=== PATIENT | female | born 1995 | race Two or more races ===

== ENCOUNTER 2019-04-27 23:35 | Inpatient (IN) | payer OTHER, SELFPAY ==
[~2019-04-27] VITALS: Ht 162.6 cm; Wt 80.0 kg
[2019-04-28] VITALS (7 sets, daily range): BP systolic 100–129; BP diastolic 57–71
[2019-04-28] MEDS ORDERED: PRENTAB9 PO (01:04)
[2019-04-28] MEDS ORDERED: LACTATED RINGER'S 1000 ML IV STA (04:02)
[2019-04-28] MEDS ORDERED: LR 1,000 ML IV SCH (04:02)
--- NOTE | 2019-04-28 04:14 | HPEPDOC ---
Obstetrical History & Physical General Date of Admission Apr 28, 2019 at 03:38 History of Present Illness Patient is a 23-year-old G3, P2 at 38.2 weeks by LMP consistent with 9 week ultr asound. Patient presents with contractions every 10 minutes or so since last night. No loss of fluid. No bleeding. Good movement. 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 Past Medical History Medical History Depression with SA Surgical History: Tooth extraction Family History Significant Family History: No pertinent family hx Social History Marital Status: Family situation: Spouse/partner home Psychosocial History: Depression, Prior suicide attempt * Smoker: non-smoker Alcohol: Denies Abuse Violence Screening Have you been hit/kicked/slapp: No Have you been sexually assault: No Imunizations Tdap status: current Influenza Status: current Medications Scheduled No.137/Iron/Folic Acd ( Vitamin Tablet) 1 Each Tablet, 1 TAB PO DAILY Physical Examination Physical Examination GENERAL: Alert and oriented times three. BREAST: . ABDOMEN: Gravid and non-tender to touch. FETUS: Is vertex (VTX) by sterile vaginal examination (SVE), EFW 3200gm by Lc. HEART RATE: Regular rate and rhythm. LUNGS: Clear to auscultation (CTA). EXTREMITIES: No edema. Pertinent Laboratoy Data Blood Type: AB+ RBC Antibody Screen: Negative HIV: Negative Hepatitis B: Negative Rapid Plasma Reagin: Nonreactive Rubella: Immune Varicella: Immune Chlamydia/Gonorrhea: Negative Group B Streptococcus: Negative Glucose Tolerance Test: 94 Anatomy Ultrasound Ultrasound Date: Jan 15, 2019 Placenta Location: Anterior Normal Anatomy: Yes Placenta Previa: No Estimated Weight (grams): 557 Steroid Therapy Steroid Therapy: No Vaginal Examination Dilation: 6 cm Effacement: 100% Station: 0 Cervical Consistency: Soft Cervical Position: Middle Presentation: Cephalic presentation Assessment Heart Rate (FHR): 130 Variability: Moderate Accelerations: Positive Decelerations: None Tocometer Contractions: Yes Frequency: regular, greater than 9 min/apart Strength: palpated as moderate Multi-drug resistant Organism: No history of MDRO Assessment/Plan Assessment Patient is a 23-year-old G3, P2 at 38.2 weeks by LMP consistent with 9 week ultrasound. Admit for labor and expect delivery by . Pain management per patient preference, which was discussed with her. I discussed risks of with patient of failure with section, distress, bleeding, infection, , vaginal or perineal or neighboring organ tear. Currently, fetus is reassuring. GBS is negative, no need for antibiotics. Plan Admit and orient. Inspector And Clerk and consent. Diet: Clear. Group B Streptococcus (GBS) negative. Labs and intravenous (IV) per unit protocol. Counseled on Pitocin and induction of labor (IOL). Lactated Ringers (LR): Bolus 500 mL, then at 125 mL/hr. Anticipate normal spontaneous delivery (). Pain management per patient desire. Flor Holguin MD Apr 28, 2019 04:14
[2019-04-28] MEDS ORDERED: CALCIUM CARBONATE 500 MG CHEW U/D PO PRN (04:15)
[2019-04-28] MEDS ORDERED: ACETAMINOPHEN 500 MG TAB PO PRN (04:15)
[2019-04-28] MEDS ORDERED: SIMETHICONE 80 MG CHEW TAB PO PRN (04:15)
[2019-04-28] MEDS ORDERED: PROMETHAZINE INJ 25 MG/ML VIAL (J2550) IV PRN (04:15)
[2019-04-28] MEDS ORDERED: MOM 30ML SUSPENSION UDC PO PRN ×2 (04:15→09:45)
[2019-04-28] MEDS ORDERED: BUTORPHANOL 2 MG/ML INJ (J0595) IV PRN (04:15)
[2019-04-28 04:16] LABS: BASO % 0.3 % (0.0-1.0); EOS % 0.5 % (0.0-3.0); HEMATOCRIT 36.1 % (36.0-47.0); LYMPH # 2.8 10^3/uL (1.5-5.0); LYMPH % 33.1 % (24.0-44.0); MEAN CORPUSCULAR HEMOGLOBIN 27.3 pg (27.0-33.0); MEAN CORPUSCULAR HGB CONC 33.2 g/dl (32.0-36.5); MEAN CORPUSCULAR VOLUME 82.2 fl (80.0-96.0); MONO # 0.4 10^3/uL (0.0-0.8); MONO % 4.7 % (0.0-5.0); NEUTROPHILS # 5.3 10^3/uL (1.5-8.5); NEUTROPHILS % 61.1 % (36.0-66.0); PLATELET COUNT, AUTOMATED 266 10^3/uL (150-450); RED BLOOD COUNT 4.39 10^6/uL (4.00-5.40); WHITE BLOOD COUNT 8.6 10^3/uL (4.0-10.0)
[2019-04-28] MEDS ORDERED: OXYTOCIN 30 UNITS IN 0.9% NaCl 500ML IV BAG (J2590) As Ordered ONE (05:03)
[2019-04-28] MEDS ORDERED: OXYTOCIN DRIP 30 UNITS in IV 1 EA IV SCH (09:44)
[2019-04-28] MEDS ORDERED: MEASLES,MUMPS,RUBELLA VACCINE INJ (MMR-II) (90707) SC SCH (09:45)
[2019-04-28] MEDS ORDERED: RHOGAM 300 MCG (1500 IU) INJ (J2790) IM SCH (09:45)
[2019-04-28] MEDS ORDERED: DOCUSATE SODIUM 100 MG CAP PO PRN (09:45)
[2019-04-28] MEDS ORDERED: ACETAMINOPHEN TAB 650MG DOSE (2X325MG) PO PRN (09:45)
[2019-04-28] MEDS ORDERED: METHYLERGONOVINE MALEATE 0.2 MG TAB PO PRN (09:45)
[2019-04-28] MEDS ORDERED: DIBUCAINE 1% OINTMENT 30GM TOP PRN (09:45)
[2019-04-28] MEDS ORDERED: ANUSOL HC CREAM 30GM TOP PRN (09:45)
[2019-04-28] MEDS ORDERED: IBUPROFEN 600 MG TAB PO PRN (09:45)
[2019-04-28 10:11] LABS: CORD GAS ABE V -3.7; CORD GAS HCO3 V 20.5 MEQ/L; CORD GAS O2 SAT V 78.5 %; CORD GAS PCO2 V 34.5 mmHg; CORD GAS PH V 7.392 UNITS; CORD GAS PO2 V 34.9 mmHg; CORD GAS TCO2 V 21.6 MEQ/L
--- NOTE | 2019-04-28 12:44 | IPN ---
DATE: 04/28/2019 23-year-old, 3, para 2, at 38 and 2 weeks of gestation who comes with contractions every 10 minutes. No loss of fluid or bleeding. Overnight spontaneously her contractions were 3-9 minutes apart and 2-10 minutes apart. Presently on evaluation, her blood pressure is 105/68, respirations 18, pulse 77, and temperature 99.8. Her hemoglobin is 12.0, hematocrit 36.1 and platelets are 266. With the prodromal contractions, we offered her an artificial rupture of membranes (AROM). She was 7 cm, floppy cervix, not well applied, -3 station, with bulging membranes and the contractions were of moderate intensity. We also offered her Pitocin as opposed to as an AROM. The patient declined all analgesics including epidural. Requested to have an AROM. After discussing risks and benefits of an AROM including hemorrhage, infection, precipitous delivery, abruptio placenta, and cord prolapse, she agreed to have an AROM at which time we had clear liquid, moderate amount. The presenting part came well down and applied to the cervix, about was 70% effaced, -3 station, in the occiput transverse position. We anticipate a spontaneous vaginal delivery.
[2019-04-28] MEDS: ACETAMINOPHEN 500 MG TAB PO PRN ×2 (12:51→20:13)
[2019-04-28] MEDS: IBUPROFEN 800 MG TAB PO PRN (16:28)
--- NOTE | 2019-04-28 17:37 | DN ---
DATE: 04/28/2019 This lady is a 3, para 2 who was admitted with contractions. Had an artificial rupture of membranes (ARM) at 7 cm dilatation. Had a precipitous uncontrolled delivery unattended in the bed with a live- female . Nuchal cord times one loose. A 6-pound 6-ounce female, 2900 grams. Placenta delivered spontaneously after. Three-vessel cord. Membranes and tissues intact. Venous pH was performed. There were no perineal tears. No lacerations. No episiotomy. Sphincter was intact and tight. The uterus contracted well down on Pitocin. The patient and baby tolerating procedure well.
[2019-04-29] MEDS: IBUPROFEN 800 MG TAB PO PRN (04:43)
[2019-04-29 05:54] VITALS: BP 102/52
[2019-04-29 07:18] LABS: HEMATOCRIT 34.9 % (36.0-47.0); HEMOGLOBIN 11.4 g/dl (12.0-15.5); MEAN CORPUSCULAR HEMOGLOBIN 27.5 pg (27.0-33.0); MEAN CORPUSCULAR HGB CONC 32.7 g/dl (32.0-36.5); MEAN CORPUSCULAR VOLUME 84.3 fl (80.0-96.0); PLATELET COUNT, AUTOMATED 226 10^3/uL (150-450); RED BLOOD COUNT 4.14 10^6/uL (4.00-5.40); WHITE BLOOD COUNT 9.4 10^3/uL (4.0-10.0)
[2019-04-29] MEDS ORDERED: DOCU100C16 PO (08:22)
[2019-04-29] MEDS ORDERED: IBUP80TA PO (08:22)
[2019-04-29] MEDS ORDERED: DIBU10OI TOP (08:22)
[2019-04-29] MEDS ORDERED: PRENATAL VITAMINS CHEWABLE TABLET PO SCH (09:00)
--- NOTE | 2019-04-29 17:50 | DSES ---
DATE OF ADMISSION: 04/28/2019 DATE OF DISCHARGE: 04/29/2019 A 24-year-old 3, now para 3 admitted with contractions, having had a spontaneous vaginal delivery with no anesthesia, female infant, 6 pounds, 6 ounces, 2900 grams, scores of 9 and 9 at one and five minutes respectively. Cord times one, nuchal, venous pH was 7.39, base excess -3.7. Admitting hemoglobin 12.0, hematocrit 36.0 and platelets were 266. Discharge hemoglobin 11.4, hematocrit 34.9 and platelets were 266. Her vital signs on discharge: Her blood pressure 102/52, respirations 16, pulse 67, temperature is 97.7. We discussed phlebitis, cystitis, mastitis, endometritis and cellulitis, diet, exercise, pain management, perineal, breast and wound care. On discharge, she is normocephalic, atraumatic. Neck: Full range of motion. Pupils equal and reactive to light. Distal pulses are symmetric. No evidence of deep vein thrombosis (DVT), pulmonary embolism (PE) or superficial phlebitis. Chest is clear bilaterally to bases. No wheezes or rhonchi. No costovertebral angle (CVA) tenderness. Abdomen is soft. Four quadrant bowel sounds are noted. Perineum is intact. No urgency, frequency, nausea, vomiting or diarrhea or constipation. She is presently breast-feeding, doing well, anxious to go home. On discharge, her blood pressure 102/52, respirations 16, pulse 67, and temperature is 97.7. In summary, we have a term gestation who delivered a live infant, has a six-week check. At which time, discussion of control will be done. The patient and the baby discharged home.
== END 2019-04-29 11:40 | disposition home or self-care (01) | DRG 807 ==
LOC: M LDO 23:35 → M ED INP 04-28 03:38 → M LDI 04-28 04:02 → M OBS 04-28 12:26
PROVIDERS: ADMIT Obstetrics & Gynecology; ATTEND Obstetrics & Gynecology
PROC: 10E0XZZ Delivery of Products of Conception, External Approach (ICD-10-PCS; principal; 2019-04-28)
PROC: 10907ZC Drainage of Amniotic Fluid, Therapeutic from Products of Conception, Via Natural or Artificial Opening (ICD-10-PCS; 2019-04-28)
DX: O62.3 Precipitate labor (principal); Z37.0 Single live birth; Z3A.38 38 weeks gestation of pregnancy; O69.81X0 Labor and delivery complicated by cord around neck, without compression, not applicable or unspecified

== ENCOUNTER 2020-08-17 11:18 | Day surgery (SDC) | payer OTHER ==
[~2020-08-17] VITALS: Ht 162.6 cm; Wt 71.2 kg
[~2020-08-17 11:18] MED LIST: DIBU28OI2 TOP; DOCU100C16 PO; IBUP80TA PO; LR 1,000 ML IV ONE; PRENTAB9 PO
[2020-08-17 12:10] LABS: HEMATOCRIT 42.4 % (36.0-47.0); HEMOGLOBIN 13.2 g/dl (12.0-15.5); MEAN CORPUSCULAR HEMOGLOBIN 26.1 pg (27.0-33.0); MEAN CORPUSCULAR HGB CONC 31.1 g/dl (32.0-36.5); MEAN CORPUSCULAR VOLUME 83.8 fl (80.0-96.0); PLATELET COUNT, AUTOMATED 287 10^3/uL (150-450); RED BLOOD COUNT 5.06 10^6/uL (4.00-5.40); WHITE BLOOD COUNT 7.7 10^3/uL (4.0-10.0)
[2020-08-17] MEDS ORDERED: propofoL 200 MG/20 ML VIAL As Ordered ONE (12:32)
[2020-08-17] MEDS ORDERED: ROCURONIUM BROMIDE 50 MG/5 ML VIAL As Ordered ONE (12:32)
[2020-08-17] MEDS ORDERED: ONDANSETRON 4MG/2ML VIAL As Ordered ONE (12:32)
[2020-08-17] MEDS ORDERED: dexameTHASONE 4 MG/ML 1ML VIAL (J1100 PER 1MG) As Ordered ONE (12:32)
[2020-08-17] MEDS ORDERED: MIDAZOLAM INJ 2MG/2ML VIAL (J2250 PER 1MG) As Ordered ONE (12:32)
[2020-08-17] MEDS ORDERED: fentaNYL 100 MCG/2 ML INJECTION (J3010) As Ordered ONE ×2 (12:32→14:33)
[2020-08-17] MEDS ORDERED: LIDOCAINE 2% 100MG/5ML SDV (FOR ANES.) As Ordered ONE (12:32)
[2020-08-17 12:33] LABS: HCG, SERUM QUALITATIVE NEGATIVE (NEGATIVE)
[2020-08-17] MEDS ORDERED: BUPIVACAINE HCL 0.5% 30 ML VIAL As Ordered ONE (13:48)
[2020-08-17] MEDS ORDERED: ACETAMINOPHEN 1000MG 100ML IV BTL (OFIRMEV) (J0131 PER 10MG) As Ordered ONE (14:14)
[2020-08-17] MEDS ORDERED: KETOROLAC 60MG 2ML VIAL As Ordered ONE (14:23)
[2020-08-17] MEDS ORDERED: SUGAMMADEX SODIUM 500 MG/5 ML VIAL (BRIDION) As Ordered ONE (14:23)
[2020-08-17] MEDS ORDERED: ePHEDrine SULFATE 25 MG/5 ML(5MG/ML) SYRINGE As Ordered ONE (14:28)
[2020-08-17] MEDS ORDERED: HYDROMORPHONE HCL 0.5 MG/ 0.5 ML SYRINGE (J1170 PER 1) IV PRN (15:20)
[2020-08-17] MEDS ORDERED: oxyCODONE 5MG TAB PO PRN (15:20)
[2020-08-17] MEDS ORDERED: LR 1,000 ML IV SCH (15:20)
[2020-08-17] MEDS ORDERED: fentaNYL 100 MCG/2 ML INJECTION (J3010) IV PRN (15:20)
[2020-08-17] MEDS ORDERED: ONDANSETRON 4MG/2ML VIAL IV PRN (15:20)
[2020-08-17 16:30] VITALS: BP 123/59
--- NOTE | 2020-08-18 08:55 | RO ---
OPERATIVE NOTE DATE OF OPERATION: 08/17/2020 PREOPERATIVE DIAGNOSIS: Satisfied parity and desire for IUD removal. POSTOPERATIVE DIAGNOSIS: Satisfied parity and desire for IUD removal. PROCEDURE: Laparoscopic bilateral salpingectomy and Paragard intrauterine device removal. SURGEON: Johann Abrams DO GRINDING ROOM SUPERVISOR: Steve Diez DO ANESTHESIA: General anesthesia. IV FLUIDS: 800 mL LR. URINE OUTPUT: 100 mL via straight cath. ESTIMATED BLOOD LOSS: 3 mL. ANTIBIOTICS: None indicated. OPERATIVE FINDINGS: Normal appearing uterus, normal appearing ovaries and normal appearing fallopian tubes bilaterally. Normal liver and gallbladder, normal gastric curve. Normal appendix. DETAILED PROCEDURE DESCRIPTION: The risks, benefits, indications, and alternatives of the procedure were reviewed with the patient and informed consent was obtained. The patient was taken to the operating room where general anesthesia was obtained without difficulty. The patient was then placed in the lithotomy position using gel-padded Omar stirrups. The patient's arms were gently tucked to the sides with padding. The patient was then prepped and draped in the usual sterile fashion. A surgical time-out was then performed and the patient's identity and planned procedure were verified with the operative team. The bladder was drained using in and out catheter. A sterile sponge stick was then placed into the vagina as a means to manipulate the uterus. Gloves were then exchanged and attention was then turned to the patient's abdomen where a 5 mm skin incision was made in the inferior aspect of the umbilicus after injection of Marcaine. A 5 mm trocar and sleeve were then carefully introduced into the peritoneal cavity under direct visualization at a 90 degree angle while tenting up the abdominal wall. Intraperitoneal placement was confirmed under direct visualization and entry pressure was noted to be less than 5 mmHg. A pneumoperitoneum was obtained with several liters of CO2 gas. Upon entry into the peritoneal cavity, structures immediately below the incision were inspected and found to be free of injury. A survey of the patient's abdomen and pelvis was notable for a normal appearing liver, gallbladder, stomach and appendix. The uterus, fallopian tubes and ovaries were normal in appearance bilaterally. The posterior cul-de-sac and anterior cul-de-sac were inspected and were also normal in appearance. Two additional 5 mm trocars, one in the left lateral aspect of the abdominal wall and one in the right lateral aspect of the abdominal wall were then placed under direct laparoscopic visualization after injection of Marcaine. Using the LigaSure electrocautery, the left fallopian tube was dissected from the mesosalpinx from the fimbriated end to the isthmic portion, taking care to cauterize any vasculature within the mesosalpinx. The fallopian tube was then amputated at its connection to the uterine cornua and removed from the patient's abdomen. Attention was then turned to the patient's right fallopian tube which was lifted by a blunt grasper and removed with the LigaSure electrocautery in a similar fashion. The tube was then removed from the patient's abdomen. Both tubes were sent to pathology for review. All operative sites were inspected and found to be hemostatic. The gas was then turned off and all CO2 was removed from the patient's abdomen. All remaining ports were removed under direct visualization and there was no bleeding seen from the trocar sites. The skin incisions were then closed with 4-0 Monocryl suture and then covered with Dermabond. The sponge stick was removed from the patient's vagina. The cervix was noted to be hemostatic. The IUD strings were seen protruding from the cervical os. The IUD was then grasped with clamps and removed intact and in its entirety from the patient's uterus. The IUD was then discarded off the field. The cervix was again noted to be hemostatic. All instruments were then removed from the patient's vagina. At the completion of the case, the sponge, instrument and needle counts were correct x2. The patient tolerated the procedure well. She was cleansed and dried, taken out of lithotomy position, awakened from anesthesia and taken to the PACU in stable condition. CARSON
== END 2020-08-17 16:30 | disposition home or self-care (01) ==
LOC: M SDC 11:18
PROVIDERS: ATTEND Obstetrics & Gynecology
DX: Z30.2 Encounter for sterilization (principal); Z30.432 Encounter for removal of intrauterine contraceptive device; F32.9 Major depressive disorder, single episode, unspecified
CPT/HCPCS: 36415; 58301; 58661; 84703; 85027; 88302; J0131; J1100; J1885; J2250; J2405; J3010